=== PATIENT | male | born 1975 | race Caucasian/White ===

== ENCOUNTER 2018-12-30 19:54 | Inpatient (IN) | payer OTHER ==
[2018-12-30] MEDS ORDERED: HEPARIN 25000 UNITS/250 ML 250 ML IV (19:55)
[2018-12-30] MEDS ORDERED: NITROGLYCERIN (SL) 0.4 MG TAB SL (20:00)
[2018-12-30 20:01] LABS: ADD MAN DIFF? NO
[2018-12-30 20:03] LABS: WHITE BLOOD COUNT 11.1 10^3/ul (4.8-10.8)
[2018-12-30 20:03] LABS: BASOPHIL # 0.1 10^3/ul (0.0-0.1); BASOPHILS % 1.2 % (0.0-2.0); EOSINOPHILS # 0.1 10^3/ul (0.0-0.5); EOSINOPHILS % 0.8 % (0.0-7.0); HEMATOCRIT 41.7 % (42.0-52.0); HEMOGLOBIN 14.4 g/dl (14.0-18.0); LYMPHOCYTES # 3.2 10^3/ul (0.8-2.9); LYMPHOCYTES % 28.4 % (15.0-51.0); MEAN CORPUSCULAR HEMOGLOBIN 29.1 pg (29.0-33.0); MEAN CORPUSCULAR HGB CONC 34.5 g/dl (32.0-37.0); MEAN CORPUSCULAR VOLUME 84.2 fl (82.0-101.0); MEAN PLATELET VOLUME 9.4 fl (7.4-10.4); MONOCYTE # 0.7 10^3/ul (0.3-0.9); MONOCYTES % 6.4 % (0.0-11.0); NEUTROPHILS % 62.4 % (39.0-77.0); PLATELET COUNT 618 10^3/UL (140-415); RED BLOOD COUNT 4.95 10^6/ul (4.70-6.10)
[2018-12-30] MEDS: LORAZEPAM 2 MG INJ IV (20:04)
[2018-12-30] MEDS: HEPARIN 1000 UNITS/ML 10 ML INJ IV (20:04)
[2018-12-30 20:21] LABS: INR 0.97
[2018-12-30 20:22] LABS: PARTIAL THROMBOPLASTIN TIME 26.5 Sec (23.0-35.0)
[2018-12-30] MEDS: SOD CHLORIDE 0.9% 1,000 ML IV ×2 (20:22→23:15)
[2018-12-30 20:24] LABS: ALANINE AMINOTRANSFERASE 59 IU/L (13-69); ALBUMIN 4.9 g/dl (3.3-4.9); ALBUMIN/GLOBULIN RATIO 1.68; ALKALINE PHOSPHATASE 56 IU/L (42-121); ANION GAP 15 (5-13); ASPARTATE AMINO TRANSFERASE 41 IU/L (15-46); BILIRUBIN,INDIRECT 0.1 mg/dl (0-1.1); BILIRUBIN,TOTAL 0.1 mg/dl (0.2-1.3); BLOOD UREA NITROGEN 21 mg/dl (7-20); CALCIUM 10.3 mg/dl (8.4-10.2); CARBON DIOXIDE 20 mmol/L (21-31); CHLORIDE 104 mmol/L (97-110); CHOL/HDL RATIO 5.7 RATIO; CHOLESTEROL 184 mg/dl (100-200); CREATININE 0.96 mg/dl (0.61-1.24); Estimated GFR > 60 mL/min (>60); GLUCOSE 188 mg/dl (70-220); HDL CHOLESTEROL 32 mg/dl (27-67); LDL CHOLESTEROL,CALCULATED 73 mg/dl; LIPASE 199 U/L (23-300); POTASSIUM 3.3 mmol/L (3.5-5.1); SODIUM 139 mmol/L (135-144); TOTAL PROTEIN 7.8 g/dl (6.1-8.1); TRIGLYCERIDES 397 mg/dl (0-149)
[2018-12-30 20:39] LABS: B-TYPE NATRIURETIC PEPTIDE 48 PG/ML (0-125); TROPONIN-I 0.038 ng/ml (0.000-0.120)
[2018-12-30] MEDS ORDERED: ACETAMINOPHEN 650MG/20.3ML CUP PO (21:00)
[2018-12-30] MEDS ORDERED: ONDANSETRON 4 MG INJ IV (21:00)
[2018-12-30] MEDS ORDERED: BISACODYL (EC) 5 MG TAB PO (21:00)
[2018-12-30] MEDS ORDERED: DOCUSATE SODIUM 100 MG CAP PO (21:00)
[2018-12-30] MEDS ORDERED: ONDANSETRON 4 MG INJ ×2 (21:13→21:49)
[2018-12-30] MEDS ORDERED: CANGRELOR TETRASODIUM/ NS 250 50 MG (21:16)
[2018-12-30] MEDS ORDERED: BIVALIRUDIN 250MG /NS 50 ML 50 ML IVPB ×2 (21:21→22:05)
[2018-12-30] MEDS ORDERED: LIDOCAINE 1% (MDV) 20 ML INJ (21:22)
[2018-12-30] MEDS ORDERED: IODIXANOL LOCM 100 ML BTL (21:22)
[2018-12-30] MEDS ORDERED: NITROGLYCERIN (IC) 100 MCG/ML INJ (21:28)
[2018-12-30] MEDS ORDERED: VERAPAMIL 5 MG INJ ×2 (21:28)
[2018-12-30] MEDS ORDERED: TICAGRELOR 90 MG TABLET (21:59)
[2018-12-30] MEDS: ATORVASTATIN 80 MG TAB PO (23:26)
[2018-12-30] MEDS: POTASSIUM CHLORIDE 50 ML IVPB (23:26)
[2018-12-31] MEDS: POTASSIUM CHLORIDE 50 ML IVPB (01:27)
[2018-12-31 02:36] LABS: CREATINE KINASE 2768 IU/L (23-200)
[2018-12-31 02:39] LABS: CK INDEX 5.8
[2018-12-31 05:31] LABS: ADD MAN DIFF? NO
[2018-12-31 05:54] LABS: BASOPHIL # 0.1 10^3/ul (0.0-0.1); BASOPHILS % 0.5 % (0.0-2.0); EOSINOPHILS % 0.3 % (0.0-7.0); HEMATOCRIT 40.1 % (42.0-52.0); HEMOGLOBIN 13.9 g/dl (14.0-18.0); LYMPHOCYTES % 10.5 % (15.0-51.0); MEAN CORPUSCULAR HEMOGLOBIN 29.1 pg (29.0-33.0); MEAN CORPUSCULAR HGB CONC 34.7 g/dl (32.0-37.0); MEAN CORPUSCULAR VOLUME 84.1 fl (82.0-101.0); MEAN PLATELET VOLUME 9.8 fl (7.4-10.4); MONOCYTE # 0.7 10^3/ul (0.3-0.9); MONOCYTES % 7.1 % (0.0-11.0); NEUTROPHIL # 7.7 10^3/ul (1.6-7.5); NEUTROPHILS % 81.1 % (39.0-77.0); PLATELET COUNT 408 10^3/UL (140-415); RED BLOOD COUNT 4.77 10^6/ul (4.70-6.10); RED CELL DISTRIBUTION WIDTH 12.3 % (11.5-14.5)
[2018-12-31 05:54] LABS: WHITE BLOOD COUNT 9.5 10^3/ul (4.8-10.8)
[2018-12-31] MEDS: PANTOPRAZOLE 40 MG INJ IV (06:00)
[2018-12-31 06:07] LABS: ANION GAP 10 (5-13); BLOOD UREA NITROGEN 12 mg/dl (7-20); CALCIUM 9.7 mg/dl (8.4-10.2); CARBON DIOXIDE 25 mmol/L (21-31); CHLORIDE 106 mmol/L (97-110); CREATININE 0.71 mg/dl (0.61-1.24); Estimated GFR > 60 mL/min (>60); GLUCOSE 106 mg/dl (70-220); POTASSIUM 4.5 mmol/L (3.5-5.1); SODIUM 141 mmol/L (135-144)
[2018-12-31 07:01] LABS: CREATINE KINASE 2978 IU/L (23-200)
[2018-12-31 07:02] LABS: CK INDEX 6.7; TROPONIN-I > 80.000 ng/ml (0.000-0.120)
[2018-12-31] MEDS: DIAZEPAM 5 MG TAB PO ×2 (08:38→09:49)
[2018-12-31] MEDS: METOPROLOL (XL) 25 MG TAB PO (09:49)
[2018-12-31] MEDS: LOSARTAN 25 MG TAB PO (09:49)
[2018-12-31] MEDS: ASPIRIN 81 MG TAB PO (09:49)
[2018-12-31] MEDS: TICAGRELOR 90 MG TABLET PO (10:02)
[2018-12-31 13:00] LABS: CREATINE KINASE 2694 IU/L (23-200)
[2018-12-31 13:05] LABS: CK INDEX 5.2
== END 2018-12-31 18:13 | disposition short-term general hospital (02) | DRG 247 ==
LOC: E/R 19:54 → CCL 21:06 → SDS 22:57 → ICU 23:00
PROC: 027034Z Dilation of Coronary Artery, One Artery with Drug-eluting Intraluminal Device, Percutaneous Approach (ICD-10-PCS; principal; 2018-12-30 20:00)
PROC: 02C03ZZ Extirpation of Matter from Coronary Artery, One Artery, Percutaneous Approach (ICD-10-PCS; 2018-12-30 20:00)
PROC: 4A023N7 Measurement of Cardiac Sampling and Pressure, Left Heart, Percutaneous Approach (ICD-10-PCS; 2018-12-30 20:00)
PROC: B211YZZ Fluoroscopy of Multiple Coronary Arteries using Other Contrast (ICD-10-PCS; 2018-12-30 20:00)
PROC: B215YZZ Fluoroscopy of Left Heart using Other Contrast (ICD-10-PCS; 2018-12-30 20:00)
DX: I21.19 ST elevation (STEMI) myocardial infarction involving other coronary artery of inferior wall (principal); I25.10 Atherosclerotic heart disease of native coronary artery without angina pectoris; F14.11 Cocaine abuse, in remission; F17.200 Nicotine dependence, unspecified, uncomplicated; F41.9 Anxiety disorder, unspecified; K21.9 Gastro-esophageal reflux disease without esophagitis
CPT/HCPCS: 36415; 71045; 80048; 80053; 80061; 82550; 82553; 82962; 83690; 83880; 84484; 85025; 85610; 85730; 87081; 93005; 93458; 96374; 96375; 99291-25